=== PATIENT | male | born 1930 | race Caucasian/White ===

== ENCOUNTER → 2017-04-26 | Outpatient (CLI) | payer MEDICARE, OTHER | END | disposition home or self-care (01) | LOC: CFH 09:16 → EDSTATUS 09:45 | PROVIDERS: ATTEND Nurse Practitioner Primary Care | DX: N50.3 Cyst of epididymis (principal); N44.1 Cyst of tunica albuginea testis; I86.1 Scrotal varices; N43.3 Hydrocele, unspecified | CPT/HCPCS: 76870 ==